=== PATIENT | female | born 1995 | race Caucasian/White ===

== ENCOUNTER → 2023-08-16 | Outpatient (CLI) | payer OTHER, SELFPAY ==
[2023-08-20 10:09] LABS: Chlamydia By Nucleic Acid AMP Negative (Negative); Gonococcus By Nucleic Acid AMP Negative (Negative)
[2023-08-26 18:37] LABS: HPV Reflexed? NOT INDICATED
== END | disposition home or self-care (01) ==
LOC: LABSPEC 17:05
PROVIDERS: PCP Family Medicine; Referring Provider Registered Nurse; Visit Provider Registered Nurse
DX: Z34.90 Encounter for supervision of normal pregnancy, unspecified, unspecified trimester (principal)
CPT/HCPCS: 87086; 87491; 87591; 88175; G0145

== ENCOUNTER → 2023-08-21 | Outpatient (CLI) | payer OTHER, SELFPAY ==
[2023-08-21 11:26] LABS: Absolute Neutrophil Count 4.8 X10^3/uL (2.0-7.7); Basophil# 0.02 X10^3/uL; Basophil% 0.3 % (0-1); Eosinophil# 0.07 X10^3/uL; Eosinophils% 0.9 % (0-5); Hemoglobin 12.2 g/dL (12.0-15.0); Lymphocyte % 27.1 % (19-41); Mean Corp Hgb Conc 31.3 g/dL (32-36); Mean Corpuscular Hgb 26.3 pg (27.0-32.0); Mean Corpuscular Volume 84.2 fL (81-99); Monocyte# 0.42 X10^3/uL; Monocyte% 5.7 % (0-10); NRBC Flagged by Analyzer 0 % (0-5); Neutrophil # 4.83 X10^3/uL (2.7-7.7); Neutrophil % 65.6 % (47-70); Platelet Count 235 K/mm3 (150-450); RBC Distribution Width CV 14.8 % (11.6-14.6); RBC Distribution Width SD 45.3 fl (35.1-43.9); Red Blood Count 4.63 M/mm3 (4.2-5.4); White Blood Count 7.4 K/mm3 (4.4-11.0)
[2023-08-21 13:20] LABS: HIV - WCH Non-Reactive (Nonreactive); Hepatitis B Surface Antigen Non-Reactive (Nonreactive); Hepatitis C Antibody Non-Reactive (Nonreactive); Rubella IgG Reactive (Nonreactive)
[2023-08-21 13:29] LABS: Syphilis Antibodies Reactive
[2023-08-21 15:20] LABS: Hemoglobin A1c 5.3 % (3.8-5.6)
== END | disposition home or self-care (01) ==
PROVIDERS: PCP Family Medicine; Referring Provider Registered Nurse; Visit Provider Registered Nurse
DX: O99.210 Obesity complicating pregnancy, unspecified trimester (principal); Z3A.00 Weeks of gestation of pregnancy not specified
CPT/HCPCS: 36415; 83036; 85025; 86703; 86762; 86780; 86803; 86850; 86900; 86901; 87340

== ENCOUNTER → 2023-11-12 | Outpatient (CLI) | payer OTHER, SELFPAY | END | disposition home or self-care (01) | LOC: LAB 11:25 | PROVIDERS: PCP Family Medicine; Referring Provider Registered Nurse; Visit Provider Registered Nurse | DX: O35.03X0 Maternal care for (suspected) central nervous system malformation or damage in fetus, choroid plexus cysts, not applicable or unspecified (principal); Z3A.00 Weeks of gestation of pregnancy not specified | CPT/HCPCS: 36415 ==

== ENCOUNTER → 2023-12-10 | Outpatient (CLI) | payer OTHER, SELFPAY ==
[2023-12-10 10:10] LABS: Absolute Lymphocyte Count 1.53 X10^3/uL (0.83-4.51); Absolute Neutrophil Count 5.5 X10^3/uL (2.0-7.7); Basophil# 0.02 X10^3/uL; Basophil% 0.3 % (0-1); Eosinophil# 0.09 X10^3/uL; Eosinophils% 1.2 % (0-5); Hematocrit 33.2 % (37-47); Hemoglobin 10.7 g/dL (12.0-15.0); Lymphocyte # 1.53 X10^3/ul (0.83-4.51); Lymphocyte % 20.3 % (19-41); Mean Corp Hgb Conc 32.2 g/dL (32-36); Mean Corpuscular Hgb 27.7 pg (27.0-32.0); Mean Platelet Vol. 10.7 fl (6.2-12.0); Monocyte# 0.36 X10^3/uL; Monocyte% 4.8 % (0-10); NRBC Flagged by Analyzer 0 % (0-5); Neutrophil # 5.51 X10^3/uL (2.7-7.7); Neutrophil % 72.9 % (47-70); Platelet Count 208 K/mm3 (150-450); RBC Distribution Width CV 14.5 % (11.6-14.6); Red Blood Count 3.86 M/mm3 (4.2-5.4); White Blood Count 7.6 K/mm3 (4.4-11.0)
[2023-12-10 11:00] LABS: Glucose Challenge Gest 1H 50g 113 mg/dL (70-140)
[2023-12-10 12:15] LABS: HIV - WCH Non-Reactive (Nonreactive); Syphilis Antibodies Reactive
== END | disposition home or self-care (01) ==
PROVIDERS: PCP Family Medicine; Referring Provider Registered Nurse; Visit Provider Registered Nurse
DX: Z34.00 Encounter for supervision of normal first pregnancy, unspecified trimester (principal)
CPT/HCPCS: 36415; 82950; 85025; 86703; 86780

== ENCOUNTER → 2023-12-31 | Outpatient (CLI) | payer OTHER, SELFPAY ==
[2024-01-03 18:07] LABS: Anti-Cardiolipin Ab, IgG, Qn < 9 GPL U/mL (0-14); Anti-Cardiolipin Ab, IgM, Qn < 9 MPL U/mL (0-12); Beta-2-Glycoprotein I IgA <9 (0-25); Beta-2-Glycoprotein I IgG <9 (0-20); Beta-2-Glycoprotein I IgM <9 (0-32); Dilute Prothrombin Time (dPT) 32.8 sec (0.0-47.6); Interpretation Comment: (.); PTT-LA 38.2 sec (0.0-43.5); Thrombin Time 15.6 sec (0.0-23.0); dPT Confirm Ratio 1.17 Ratio (0.00-1.34)
== END | disposition home or self-care (01) ==
LOC: LAB 13:53
PROVIDERS: PCP Family Medicine; Referring Provider Registered Nurse; Visit Provider Registered Nurse
DX: N96 Recurrent pregnancy loss (principal)
CPT/HCPCS: 36415; 86146; 86147

== ENCOUNTER → 2024-01-31 | Outpatient (CLI) | payer OTHER, SELFPAY ==
[2024-01-31 11:40] LABS: Glucose Challenge Gest 1H 50g 123 mg/dL (70-140)
== END | disposition home or self-care (01) ==
LOC: PAVLAB 10:59
PROVIDERS: PCP Family Medicine; Referring Provider Advanced Practice Midwife; Visit Provider Advanced Practice Midwife
DX: O99.212 Obesity complicating pregnancy, second trimester (principal); Z3A.00 Weeks of gestation of pregnancy not specified
CPT/HCPCS: 36415; 82950

== ENCOUNTER → 2024-02-18 | Outpatient (CLI) | payer OTHER, SELFPAY | END | disposition home or self-care (01) | LOC: LABSPEC 15:18 | PROVIDERS: PCP Family Medicine; Referring Provider Obstetrics & Gynecology; Visit Provider Obstetrics & Gynecology | DX: Z34.03 Encounter for supervision of normal first pregnancy, third trimester (principal) | CPT/HCPCS: 87081 ==

== ENCOUNTER → 2024-02-26 | Outpatient (CLI) | payer OTHER, SELFPAY ==
[2024-02-26 16:04] LABS: Glucose Challenge Gest 1H 50g 118 mg/dL (70-140)
== END | disposition home or self-care (01) ==
LOC: PAVLAB 14:23
PROVIDERS: PCP Family Medicine; Referring Provider Advanced Practice Midwife; Visit Provider Advanced Practice Midwife
DX: O43.113 Circumvallate placenta, third trimester (principal); Z3A.00 Weeks of gestation of pregnancy not specified
CPT/HCPCS: 36415; 82950

== ENCOUNTER 2024-03-01 05:13 | Inpatient (IN) | payer OTHER, SELFPAY ==
[2024-03-01] VITALS (46 sets, daily range): BP systolic 110–150; BP diastolic 53–93; PULSE 60–112; RESP 14–16; TEMP 35.6–36.7; O2SAT 96–100; BMI 48.4
[2024-03-01 05:04] LABS: ROM Internal Control Test YES-OK TO RESULT pt. (Internal QC); ROM Patient Test POSITIVE (Negative); Record Kit Lot#, ROM+ K1866
[2024-03-01] MEDS: Lactated Ringers 1,000 ML 50 ML IV (05:33)
[2024-03-01 06:09] LABS: Absolute Lymphocyte Count 1.61 X10^3/uL (0.83-4.51); Absolute Neutrophil Count 5.8 X10^3/uL (2.0-7.7); Basophil# 0.02 X10^3/uL; Basophil% 0.2 % (0-1); Eosinophil# 0.11 X10^3/uL; Eosinophils% 1.3 % (0-5); Hemoglobin 10.8 g/dL (12.0-15.0); Lymphocyte # 1.61 X10^3/ul (0.83-4.51); Lymphocyte % 19.7 % (19-41); Mean Corp Hgb Conc 32.7 g/dL (32-36); Mean Corpuscular Hgb 27.3 pg (27.0-32.0); Mean Corpuscular Volume 83.3 fL (81-99); Mean Platelet Vol. 11.4 fl (6.2-12.0); Monocyte# 0.63 X10^3/uL; Monocyte% 7.7 % (0-10); NRBC Flagged by Analyzer 0 % (0-5); Neutrophil # 5.79 X10^3/uL (2.7-7.7); Neutrophil % 70.7 % (47-70); Platelet Count 224 K/mm3 (150-450); RBC Distribution Width CV 14.7 % (11.6-14.6); RBC Distribution Width SD 44.2 fl (35.1-43.9); Red Blood Count 3.96 M/mm3 (4.2-5.4); White Blood Count 8.2 K/mm3 (4.4-11.0)
[2024-03-01 07:32] LABS: Syphilis Antibodies Reactive
--- NOTE | 2024-03-01 09:47 | HP.PCM.OB_ITS ---
HPI - General General Date of Admission: 03/01/24 Date of Service: 03/01/24 Chief Complaint: LOF HPI Narrative AMERICA BRISCOE, is a 28 F who presents at 37.5 with gush of fluid around 0230, clear. mild irregular contractions. denies vb. +fm. complicated by obesity and LGA in 94% at 4275g on 02/24. repeat gct is normal. Maternal Data Information CLAUDIA Calculator Estimated Delivery Date Method Current WG Current Estimate 03/17/24 Ultrasound #1 37w 5d PFSH PFSH Medical History (Updated 03/01/24 @ 09:50 by Yue Almanzar CNM) Placental abnormality macrosomia Home Medications ?Medication ?Instructions ?Recorded ?Last Taken ?Type PNV 153-FA 400 mcg-om3 35 mg-dha tab PO DAILY 08/06/23 Unknown History 25 mg-epa 5 mg-fish oil chew tablet Allergy/AdvReac Type Severity Reaction Status Date / Time bee venom protein (honey bee) Allergy Intermediate Rash Verified 03/01/24 04:43 Family History Mother Thyroid disorder hypothyroidism Sister Thyroid disorder hyperthyroidism Social History adopted: No household members: spouse current occupational status: employed current occupation: [employer] pets and animals: Yes (not managing litterbox) pets and animals: cat(s) and dog(s) history of recent travel: No sexually active: Yes Smoking Status: Never smoker alcohol intake: never substance use type: does not use well-balanced diet: daily or most days caffeine: No eating out: 1-3 times/week during the past year weight has: remained stable what type of physical activity do you participate in: none [place]/zoroastrian: Sabianist seatbelt use: always do you feel safe at home: Yes additional social history: [employer] History 1 Elective abortions Hx Para 0 Spontaneous abortions Hx # Term Pregnancies Ectopic pregnancies Hx # Pregnancies Multiple births # of living children Visit Details Expected Delivery Route/Plan Labor Preferences- CB/BF classes: december labor support person: Otis labor intervention preferences: [] pain management options preferred: limited intervention cut cord/dad catch: cord : wants PP control planned: discussed discussed possible routes of delivery and associated risks: [] special requests: [] Plans Covid status: discussed Flu vaccine: declines Tdap vaccine: given Rhogam: NA LARC form signed: yes movement and labor precautions reviewed. Problem list reviewed and updated with the most current plan of care details and appropriate orders placed. Relevant counseling for the gestational age provided. Continue routine care and follow up unless otherwise noted in visit notes/problem list details OB Flowsheet Initial Weight: 256 lb Date -?-?-?-?-?-?-?-?-?-?-?-?- EGA Weight BP Urine Prot -?-?-?-?-?-?-?-?-?-?-?-?- Glucose FHR FuHt Pres Dilation -?-?-?-?-?-?-?-?-?-?-?-?- Effaced St Visit Note 08/16/23 -?-?-?-?-?-?-?-?-?-?-?-?- 9w 3d 256 lb 4 oz (+4 oz) 122/83 -?-?-?-?-?-?-?-?-?-?-?-?- 175 -?-?-?-?-?-?-?-?-?-?-?-?- LC-crl con with lmp. claudia 03/17/2024. declines nipt. hbga1c for BMI>40. LC-early trimester us at , consistent CRL. claudia 03/17/2024. declines nipt. hbga1c for BMI>40. 09/10/23 -?-?-?-?-?-?-?-?-?-?-?-?- 13w 0d 256 lb 2 oz (+2 oz) 129/81 Negative -?-?-?-?-?-?-?-?-?-?-?-?- Negative -?-?-?-?-?-?-?-?-?-?-?-?- KW-no vb/coretta PUCKETT labs reviewed today. Many questions today. strong FHT and movement noted on handheld US today 10/08/23 -?-?-?-?-?-?-?-?-?-?-?-?- 17w 0d 260 lb 4 oz (+4 lb 4 oz) 124/72 Negative -?-?-?-?-?-?-?-?-?-?-?-?- Negative 169 -?-?-?-?-?-?-?-?-?-?-?-?- MH-No VB or cram ping. Mild nausea persists, declines RX. Reviewed normal PN labs 11/08/23 -?-?-?-?-?-?-?-?-?-?-?-?- 21w 3d 264 lb (+8 lb) 117/83 -?-?-?-?-?-?-?-?-?-?-?-?- 150 -?-?-?-?-?-?-?-?-?-?-?-?- LC- no vb/ctx/lo f. occ fm. + CSP on anatomy with circumv placenta. growth scheduled. desires to obtain nipt. does not desire echo is nipt is normal. 12/04/23 -?-?-?-?-?-?-?-?-?-?-?-?- 25w 1d 268 lb 8 oz (+12 lb 8 oz) 126/86 Negative -?-?-?-?-?-?-?-?-?-?-?-?- Negative 145 25 -?-?-?-?-?-?-?-?-?-?-?-?- KW- no vb/lof/ct x. good fm. 28 week labs discussed. CBE classes scheduled. 12/25/23 -?-?-?-?-?-?-?-?-?-?-?-?- 28w 1d 274 lb 4 oz (+18 lb 4 oz) 124/68 Negative -?-?-?-?-?-?-?-?-?-?-?-?- Negative 146 29 -?-?-?-?-?-?-?-?-?-?-?-?- MH-No VB, LOF. G ood FM. Larc, tdap. 01/08/24 -?-?-?-?-?-?-?-?-?-?-?-?- 30w 1d 273 lb (+17 lb) 106/77 Negative -?-?-?-?-?-?-?-?-?-?-?-?- Negative 135 30 -?-?-?-?-?-?-?-?-?-?-?-?- JV- no lof, vagi nal bleeding, or dec fm. apl panel was ordered by LC and was negative. pt has lots of questions 01/21/24 -?-?-?-?-?-?-?-?-?-?--?-?- 32w 0d 276 lb 8 oz (+20 lb 8 oz) 113/65 Negative -?-?-?-?-?-?-?-?-?-?-?-?- Negative 140 34 -?-?-?-?-?-?-?-?-?-?-?-?- KW- no vb/lof/ct x. good fm. no concerns today 02/05/24 -?-?-?-?-?-?-?-?-?-?-?-?- 34w 1d 278 lb 6 oz (+22 lb 6 oz) 123/75 Negative -?-?-?-?-?-?-?-?-?-?-?-?- Negative 150 -?-?-?-?-?-?-?-?-?-?-?-?- JV- no concerns. has rpt growth scan at 36 weeks 02/18/24 -?-?-?-?-?-?-?-?-?-?-?-?- 36w 0d 283 lb (+27 lb) 136/81 Negative -?-?-?-?-?-?-?-?-?-?-?-?- Negative 130 38 Cephalic 0 .5 -?-?-?-?-?-?-?-?-?-?-?-?- SM- no vb lof go od fm no regular ctx 02/26/24 -?-?-?-?-?-?-?-?-?-?-?-?- 37w 1d 288 lb 4 oz (+32 lb 4 oz) 132/80 Negative -?-?-?-?-?-?-?-?-?-?-?-?- Negative 130 39 -?-?-?-?-?-?-?-?-?-?-?-?- MH-No VB, LOF or CTX. Declines internal. Reactive NST. LGA per [facility] US 02/24. Rpt GCT today. Will discuss with JV tomorrow when in office for management. NST FHR Rate Baby A Baseline: 130 Variability:: Moderate Accelerations:: 15 x 15 Decelerations:: None NST Reactive:: Yes FHR Category:: Category I Uterine Activity:: irregular ctx ROS Cardiovascular Cardiovascular: Denies abdominal pain, chest pain, diaphoresis or dyspnea Respiratory/Chest Respiratory/Chest: Denies change in mental status, chest congestion, chest tightness, cough, shortness of breath at rest, shortness of breath with exertion, breast mass, breast pain, breast skin changes, breast swelling, change in breast shape or nipple discharge Genitourinary Genitourinary: Reports change in urinary stream Musculoskeletal Musculoskeletal: Reports none Integumentary Integumentary: Reports none Neurologic Neurologic: Reports none Psychiatric Psychiatric: Reports none Endocrine Endocrinology: Reports none Hematologic/Lymphatic Hematologic/Lymphatic: Reports none Allergic/Immunologic Allergic/Immunologic: Reports none Vital Signs Vital Signs Vital Signs: 03/01/24 04:36 03/01/24 04:36 03/01/24 04:38 Temperature Temperature Source Pulse Rate 70 Respiratory Rate Blood Pressure 130/67 H BP Systolic 130 BP Diastolic 67 Pulse Ox 98 03/01/24 04:38 03/01/24 05:56 03/01/24 05:56 Temperature Temperature Source Pulse Rate 75 70 Respiratory Rate Blood Pressure 128/80 H BP Systolic 128 BP Diastolic 80 Pulse Ox 03/01/24 05:57 03/01/24 05:57 03/01/24 05:57 Temperature Temperature Source Temporal Pulse Rate 81 Respiratory Rate Blood Pressure BP Systolic BP Diastolic Pulse Ox 97 03/01/24 05:57 03/01/24 07:54 03/01/24 07:54 Temperature 97.5 F L Temperature Source Pulse Rate 82 Respiratory Rate Blood Pressure 131/75 H BP Systolic 131 BP Diastolic 75 Pulse Ox 03/01/24 07:55 03/01/24 07:55 03/01/24 07:55 Temperature Temperature Source Temporal Pulse Rate 90 Respiratory Rate 14 Blood Pressure BP Systolic BP Diastolic Pulse Ox 03/01/24 07:55 03/01/24 07:55 03/01/24 09:08 Temperature 97.4 F L Temperature Source Temporal Pulse Rate Respiratory Rate Blood Pressure BP Systolic BP Diastolic Pulse Ox 98 03/01/24 09:08 03/01/24 09:08 03/01/24 09:08 Temperature Temperature Source Pulse Rate 75 Respiratory Rate 16 Blood Pressure BP Systolic BP Diastolic Pulse Ox 97 03/01/24 09:08 03/01/24 09:09 03/01/24 09:09 Temperature 97.0 F L Temperature Source Pulse Rate 78 Respiratory Rate Blood Pressure 119/60 BP Systolic 119 BP Diastolic 60 Pulse Ox Weight Weight: 282 lb 3.2 oz Body Mass Index (BMI) 48.4 Physical Exam Const alert, oriented x3 and no apparent distress General Appearance: cooperative, comfortable and well kempt Orientation / Consciousness: awake and oriented to person Exam Limitations: no limitations HEENT normocephalic Neck full ROM Chest inspection of chest normal Resp normal respiratory effort, normal air movement and no retractions Effort and Inspection: able to speak in complete sentences and symmetric chest movement Cardio regular rate Peripheral Pulses: pulses 2+ throughout GI normal to inspection, nondistended, normoactive bowel sounds Inspection: gravid no CVA tenderness and appearance of the vagina normal External Female Exam: normal appearance of the urethra; Negative for external lesion OB / External & Speculum: external exam normal Manual OB Exam: estimated gestational size appropriate and presentation cephalic Uterus Palpation: Negative for uterus tender Extremity normal to inspection Skin no rashes or lesions noted Neuro deep tendon reflexes 2+ bilaterally and gait normal Motor Exam: strength 5/5 throughout and clonus absent Psych Activity / Motor Behavior: appropriate eye contact Speech: normal speech Labs Labs Labs: Blood Type O POSITIVE Antibody Screen NEGATIVE Hct 33.0 % (37-47) L Hgb 10.8 g/dL (12.0-15.0) L Pap Smear Negative Syphilis Total Ab Reactive Rubella IgG Antibody Reactive (Nonreactive) Hep Bs Antigen Non-Reactive (Nonreactive) Hepatitis C Antibody Non-Reactive (Nonreactive) Chlamydia DNA (ESTELLA) Negative (Negative) N.gonorrhoeae DNA (ESTELLA) Negative (Negative) HIV 1&2 Antibody Non-Reactive (Nonreactive) Glucose 1 Hr 50 gm 118 mg/dL (70-140) Miscellaneous Test Assessment & Plan (1) SROM (spontaneous rupture of membranes): COMMENT: 0230, clear. afebrile. gbs neg. PLAN: -admit with routine orders. -GBS neg -plan for cytotec 25mcg buccal due to irregular ctx pattern at 6 hours of SROM without significant cervical change. to recheck cervix 4 hours after cytotec administered, if favorable ferguson score plan to augment with pitocin as needed. Dr. Mcclellan updated on admission, exam and poc and agrees with management.
[2024-03-01] MEDS: miSOPROStol 25 MCG TABLET PO (10:24)
[2024-03-01] MEDS: 0.9% Saline Lock 10 ML Syringe IV (14:54)
[2024-03-01] MEDS: Oxytocin 15 Units/NS 250ml 15 UNITS/250 ML IV.SOLN 2 UNITS IV (15:36)
[2024-03-01] MEDS: Lactated Ringers 1,000 ML 999 ML IV (19:35)
[2024-03-01] MEDS: fentaNYL-bupivacaine (epidural) 100 ML BAG EPIDURAL (20:07)
[2024-03-01] MEDS: Lactated Ringers 1,000 ML 200 ML IV (21:55)
[2024-03-01] MEDS: LACTATED RINGERS 500 ML 999 ML IV (21:56)
[2024-03-02] VITALS (27 sets, daily range): BP systolic 103–139; BP diastolic 52–83; PULSE 87–116; RESP 14–16; TEMP 36.1–37.4; O2SAT 89–98
[2024-03-02] MEDS: fentaNYL-bupivacaine (epidural) 100 ML BAG EPIDURAL ×2 (01:22→07:46)
[2024-03-02] MEDS: Lactated Ringers 1,000 ML 200 ML IV ×2 (01:24→08:59)
[2024-03-02] MEDS: LACTATED RINGERS 500 ML 999 ML IV (03:15)
[2024-03-02] MEDS: Amnioinfusion- 0.9% NS 1,000 ML IV.SOLN. 1000 ML INTRA-UTER (03:21)
[2024-03-02] MEDS: Ondansetron 4 MG/2 ML Vial IV (07:52)
[2024-03-02] MEDS: Oxytocin 15 Units/NS 250ml 15 UNITS/250 ML IV.SOLN 83 UNITS IV (11:10)
--- NOTE | 2024-03-02 12:23 | EX.PCM.OBRPT ---
Assessment & Plan (1) SROM (spontaneous rupture of membranes): COMMENT: 0230, clear. afebrile. gbs neg. (2) LGA (large for gestational age) fetus affecting management of mother: QUALIFIERS: Fetus number: single or unspecified fetus Trimester: third trimester Qualified Code(s): O36.63X0 - Maternal care for excessive growth, third trimester, not applicable or unspecified COMMENT: 02/24: EFW: 94%; AC>99%.(EFW 4275gm) Rpt GCT: (3) Anemia affecting : QUALIFIERS: Trimester: third trimester Qualified Code(s): O99.013 - Anemia complicating , third trimester (4) Marginal insertion of umbilical cord: (5) Choroid plexus cyst of fetus: COMMENT: NIPT low risk (6) Circumvallate placenta: QUALIFIERS: Trimester: third trimester Qualified Code(s): O43.113 - Circumvallate placenta, third trimester COMMENT: growth q4 33wks 75%, AC 97% (repeated gct-nl) (7) Obesity affecting : QUALIFIERS: Trimester: second trimester Obesity type affecting : unspecified obesity Qualified Code(s): O99.212 - Obesity complicating , second trimester COMMENT: hgba1c nl.healthy weight gain recommended. BMI 43. weekly nsts until delivery. (8) Supervision of normal first : QUALIFIERS: Trimester: third trimester Qualified Code(s): Z34.03 - Encounter for supervision of normal first , third trimester COMMENT: [id number], CLAUDIA 03/17/24, boy Otis (9) : QUALIFIERS: Weeks of gestation: 36 weeks Qualified Code(s): Z3A.36 - 36 weeks gestation of COMMENT: gbs neg, anatomy nl but unable to see heart well. Has echo with [facility], declines carrier testing. LR NIPT (10) Vaginal delivery: COMMENT: SM 37 IAL SROM Maternal Data Information CLAUDIA Calculator Estimated Delivery Date Method Current WG Current Estimate 03/17/24 Ultrasound #1 37w 6d Vaginal Delivery Operative Information Date of Procedure: 03/02/24 Pre-Operative Diagnosis: see a/p diagnoses Post-Operative Diagnosis: same Surgery / Procedure Performed: Spontaneous Vaginal Delivery Type of Anesthesia: Epidural Special Medications: none Estimated Blood Loss: 400 Fluids Replaced: crystalloid Findings Description of Procedure: Patient began pushing and delivered the head in the KADEN presentation. The head was delivered atraumatically and a loose nuchal cord ?2 was identified and the infant delivered through without complication. The anterior and posterior shoulders delivered without complication followed by the rest of the infant and the was placed on the maternal abdomen. Delayed cord clamping was employed for approximately 60 seconds. Cord was clamped and cut and gentle traction was applied to the cord and the placenta delivered spontaneously immediately following it was noted to be intact with three-vessel cord. The perineum and vagina were inspected and noted to have a second degree perineal laceration which was repaired in the usual fashion with 3-0 vicryl rapide. . EBL was 400. Patient and tolerated delivery well. Amniotic Fluid Description: Clear Placental Delivery Description: Spontaneous Placenta Disposition: [facility] Cord Vessel Description: 3 Vessels Cord Entanglement: Around neck x 2, loose Delayed Cord Clamping: Yes Post Vaginal Delivery Medications Given After Delivery: IV Pitocin Episiotomy Description: None Complication Complications: None Procedures Urinary/Genital [id number]: [id number] Vaginal Delivery [facility]
[2024-03-03 00:07] VITALS: BP 116/51; PULSE 110; RESP 18; TEMP 36.6; O2SAT 97
[2024-03-03 04:54] VITALS: BP 126/66; PULSE 103; RESP 16; TEMP 36.6; O2SAT 97
--- NOTE | 2024-03-03 07:30 | NURSING ---
report given to Jeimy Nur RN who is assuming care of pt at this time, all late entry charting due to [facility] downtime
[2024-03-03 07:37] VITALS: BP 124/73; PULSE 96; RESP 18; TEMP 36.2; O2SAT 97
--- NOTE | 2024-03-03 09:12 | PCM.PN.OB ---
Subjective Subjective Patient doing well without complaints. Tolerating PO. Ambulating and voiding without difficulty. Feeding well. Denies chest pain, shortness of breath, calf pain/swelling, fevers, chills, lightheadedness. Objective Data Objective Data Vital Signs: Vital Signs Temp Pulse Resp BP Pulse Ox O2 Del Method 97.9 F 103 H 16 126/66 H 97 Room Air 03/03/24 04:54 03/03/24 04:54 03/03/24 04:54 03/03/24 04:54 03/03/24 04:54 03/03/24 04:54 Oxygen Delivery Method Room Air Weight: 282 lb 3.2 oz Body Mass Index (BMI) 48.4 Intake & Output: Intake and Output for Last 24 Hours 03/01/24 03/02/24 03/03/24 23:59 23:59 23:59 Intake Total 4130.93 / 4130.93 3467.27 / 3467.27 Output Total 400 / 400 750 / 750 Balance 3730.93 / 3730.93 2717.27 / 2717.27 Lab / Micro Data 03/01/24 05:25 Physical Exam Const alert and oriented x3 Eyes PERRL Neck full ROM Lymph Lymphatic: no lymphadenopathy noted Chest inspection of chest normal Resp normal respiratory effort, normal air movement, no retractions and no use of accessory muscles Cardio regular rate and regular rhythm GI normal to inspection, nondistended, normoactive bowel sounds Uterus Palpation: uterus fundus firm Extremity normal to inspection, full ROM and no calf tenderness Skin no rashes or lesions noted Psych mental status grossly normal Assessment & Plan (1) Vaginal delivery: COMMENT: 37 IAL SROM PLAN: s/p PPD # 1 1. routine post delivery care 2. breast feeding- support given 3. rh positive 4. rubella immune 5. desires early discharge, pending pedi.
[2024-03-03 13:10] VITALS: BP 114/65; PULSE 97; RESP 16; TEMP 36.6; O2SAT 97
--- NOTE | 2024-03-07 12:46 | NURSING ---
03/07 at 1215: Family here today for repeat jaundice check and weight check. F/up questions asked in person today. was readmitted for some phototherapy yesterday, and family went home late last night. Pt. using nipple shield for feeding, milk is in, feedings going well. No s+s reported of complications. Pt. denied any questions or concerns during visit today.
== END 2024-03-03 14:30 | disposition home or self-care (01) | DRG 807 ==
LOC: WPOUT 05:16 → WP 05:16
PROVIDERS: Admitting Provider Registered Nurse; PCP Family Medicine; Referring Provider Registered Nurse; Visit Provider Registered Nurse
DX: O99.214 Obesity complicating childbirth (principal); Z37.0 Single live birth; O36.63X0 Maternal care for excessive fetal growth, third trimester, not applicable or unspecified; O69.81X0 Labor and delivery complicated by cord around neck, without compression, not applicable or unspecified; O70.1 Second degree perineal laceration during delivery; Z3A.37 37 weeks gestation of pregnancy
CPT/HCPCS: 59025; 59050; 84112; 85025; 86780; 86850; 86900; 86901; 99221; J7030; J7120; A4216; G0378; J2405